=== PATIENT | female | born 1985 | race Caucasian/White ===

== ENCOUNTER 2017-01-15 22:29 | Emergency (ER) | payer MEDICAID ==
[2017-01-15 23:52] LABS: BASOPHIL % 0.8 % (0-2); PLATELET COUNT 221 x10^3mcL (130-400); RED CELL DISTRIBUTION WIDTH 13.1 % (11.5-14.5)
[2017-01-16 00:01] LABS: CALCIUM 8.5 mg/dL (8.5-10.1); CARBON DIOXIDE 25.2 mmol/L (21-32); CHLORIDE SERUM 105 mmol/L (98-107); CREATININE SERUM 0.6 mg/dL (0.6-1.0); GFR1 > 60 mL/min; GLUCOSE SERUM 95 mg/dL (74-106); POTASSIUM SERUM 3.9 mmol/L (3.5-5.1); SODIUM SERUM 140 mmol/L (136-145)
[2017-01-16 00:06] LABS: ALBUMIN 3.9 g/dL (3.4-5.0); ALKALINE PHOSPHATASE 77 U/L (46-116); ALT/SGPT 21 U/L (14-59); AST/SGOT 19 U/L (15-37); BILIRUBIN TOTAL 0.53 mg/dL (0.20-1.00); TOTAL PROTEIN, SERUM 7.7 g/dL (6.4-8.2)
[2017-01-16 01:33] VITALS: BP 114/71
== END 2017-01-16 01:33 | disposition home or self-care (01) ==
LOC: ED 22:29
PROVIDERS: Emergency Medicine
DX: R07.89 Other chest pain (principal); E03.9 Hypothyroidism, unspecified
CPT/HCPCS: 83880; J1885

== ENCOUNTER 2018-04-29 20:45 | Emergency (ER) | payer OTHER ==
[~2018-04-29] VITALS: Ht 160 cm; Wt 83.5 kg
[2018-04-29 20:56] VITALS: Ht 160 cm; Wt 83.5 kg
[2018-04-29 23:19] LABS: microscopic required? NO
[2018-04-29 23:33] LABS: UA SPECIFIC GRAVITY <=1.005 (1.005-1.035); urine erythrocyte NEGATIVE (NEGATIVE)
[2018-04-30 02:05] VITALS: BP 132/72
== END 2018-04-30 02:05 | disposition home or self-care (01) ==
LOC: ED 20:45
PROVIDERS: Emergency Medicine
DX: N83.201 Unspecified ovarian cyst, right side (principal); E03.9 Hypothyroidism, unspecified; Z90.49 Acquired absence of other specified parts of digestive tract
CPT/HCPCS: 87491; 87591; J1885

== ENCOUNTER 2019-02-15 22:04 | Emergency (ER) | payer OTHER ==
[~2019-02-15] VITALS: Ht 160 cm; Wt 83.9 kg
[2019-02-15 22:13] VITALS: Ht 160 cm; Wt 83.9 kg
[2019-02-15 23:31] VITALS: BP 116/80
== END 2019-02-15 23:31 | disposition home or self-care (01) ==
LOC: ED 22:04
DX: S16.1XXA Strain of muscle, fascia and tendon at neck level, initial encounter (principal); S70.02XA Contusion of left hip, initial encounter; M25.562 Pain in left knee; E03.9 Hypothyroidism, unspecified; Z90.89 Acquired absence of other organs; W01.0XXA Fall on same level from slipping, tripping and stumbling without subsequent striking against object, initial encounter; Y93.89 Activity, other specified; Y92.512 Supermarket, store or market as the place of occurrence of the external cause; Y99.8 Other external cause status
CPT/HCPCS: J1885

== ENCOUNTER 2019-08-10 16:02 | Emergency (ER) | payer OTHER ==
[~2019-08-10] VITALS: Ht 160 cm; Wt 83.5 kg
[2019-08-10 16:09] VITALS: Ht 160 cm; Wt 83.5 kg
[2019-08-10 18:37] VITALS: BP 119/82
== END 2019-08-10 18:37 | disposition home or self-care (01) ==
LOC: ED 16:02
DX: M54.42 Lumbago with sciatica, left side (principal); N39.0 Urinary tract infection, site not specified; E03.9 Hypothyroidism, unspecified; Z90.89 Acquired absence of other organs
CPT/HCPCS: 99406; J1885